=== PATIENT | female | born 1970 | race Caucasian/White ===

== ENCOUNTER 2016-08-11 18:44 | Emergency (ER) | payer SELFPAY ==
[~2016-08-11] VITALS: Ht 160 cm; Wt 85.2 kg
[~2016-08-11 18:44] MED LIST: KETO10 PO; PROM25TA5 PO
[2016-08-11 18:52] VITALS: BP 124/84; PULSE 88; RESP 16; TEMP 98.7; O2SAT 100
== END 2016-08-11 19:15 | disposition left against medical advice (07) ==
LOC: PHED 18:44 → PHEFT 19:15
DX: M54.9 Dorsalgia, unspecified (principal); Z53.21 Procedure and treatment not carried out due to patient leaving prior to being seen by health care provider
CPT/HCPCS: 99281